=== PATIENT | female | born 1965 | race Caucasian/White ===

== ENCOUNTER → 2016-04-10 | Outpatient (CLI) | payer BC ==
--- NOTE | 2016-04-11 11:31 | MM ---
Reason for exam: screening (asymptomatic). Last mammogram was performed 1 year and 2 months ago. History: Patient has history of endometrial cancer at age 24. Benign excisional biopsy of the left breast, November 16, 1998. Taking hormonal contraceptives for 16 years. Physical Findings: A clinical breast exam by your physician is recommended on an annual basis and results should be correlated with mammographic findings. MG Screening Mammo w CAD Bilateral CC and MLO view(s) were taken. Prior study comparison: January 26, 2015, bilateral MG screening mammo w CAD. September 09, 2013, bilateral MG screening mammo w CAD. The breast tissue is heterogeneously dense. This may lower the sensitivity of mammography. No significant changes when compared with prior studies. ASSESSMENT: Benign, BI-RAD 2 RECOMMENDATION: Routine screening mammogram of both breasts in 1 year.
== END | disposition home or self-care (01) ==
LOC: RADMAMWWP 12:59
PROVIDERS: ATTEND Obstetrics & Gynecology
DX: Z12.31 Encounter for screening mammogram for malignant neoplasm of breast (principal)

== ENCOUNTER → 2018-06-12 | Outpatient (CLI) | payer BC ==
--- NOTE | 2018-06-16 09:36 | MM ---
Reason for exam: screening (asymptomatic). Last mammogram was performed 2 years and 2 months ago. History: Patient has history of endometrial cancer at age 24. Benign excisional biopsy of the left breast, November 16, 1998. Took hormonal contraceptives for 16 years. Physical Findings: A clinical breast exam by your physician is recommended on an annual basis and results should be correlated with mammographic findings. MG 3D Screening Mammo W/Cad Bilateral CC and MLO view(s) were taken. Prior study comparison: April 10, 2016, bilateral MG screening mammo w CAD. January 26, 2015, bilateral MG screening mammo w CAD. There are scattered fibroglandular densities. No significant changes when compared with prior studies. ASSESSMENT: Benign, BI-RAD 2 RECOMMENDATION: Routine screening mammogram of both breasts in 1 year.
== END | disposition home or self-care (01) ==
LOC: RADMAMWWP 12:38
PROVIDERS: ATTEND Obstetrics & Gynecology
DX: Z12.31 Encounter for screening mammogram for malignant neoplasm of breast (principal)
CPT/HCPCS: 77063; 77067

== ENCOUNTER → 2018-10-09 | Outpatient (CLI) | payer BC ==
--- NOTE | 2018-10-09 09:37 | BD ---
EXAMINATION TYPE: Axial Bone Density DATE OF EXAM: 10/09/2018 COMPARISON: NONE CLINICAL HISTORY: N 95.1 Height: 5 FT 4 IN Weight: 217 FRAX RISK QUESTIONS: History of Fracture in Adulthood: YES RISK FACTORS HISTORY OF: Family History of Osteoporosis: YES Active: YES Postmenopausal woman: APPROX AGE 49 MEDICATIONS: Thyroid Medications: YES Which medication: SYNTHROID How Lon PLUS YEARS Additional Medications: SYNTHROID,VIT D Additional History: EXAM MEASUREMENTS: Bone mineral densitometry was performed using the [employer]. Bone mineral density as measured about the Lumbar spine is: ----- L1-L4(G/cm2): 1.075 T Score Values are as follows: ----- L2: -0.8 ----- L3: -0.9 ----- L4: -0.8 ----- L1-L4: -0.9 BASELINE Bone mineral density about the R hip (g/cm2): 0.992 Bone mineral density about the L hip (g/cm2): 1.032 T Score values are as follows: -----R Neck: -0.3 -----L Neck: 0.0 -----R Total: 0.4 -----L Total: 0.6 BASELINE IMPRESSION: Normal (Values between +1 and -1 indicate normal bone mass). Values approach osteopenia in regards to the lumbar spine. Consider repeating this study in 5 years or sooner if there is some new clinical i ndication. NOTE: T-SCORE=SD OF THE YOUNG ADULT MEAN.
== END | disposition home or self-care (01) ==
LOC: RADBDWWP 08:46
PROVIDERS: ATTEND Obstetrics & Gynecology
DX: M85.88 Other specified disorders of bone density and structure, other site (principal); N95.1 Menopausal and female climacteric states
CPT/HCPCS: 77080

== ENCOUNTER → 2019-09-02 | Outpatient (CLI) | payer BC ==
--- NOTE | 2019-09-03 09:13 | MM ---
Reason for exam: screening (asymptomatic). Last mammogram was performed 1 year and 3 months ago. History: Patient is postmenopausal and has history of endometrial cancer at age 24. Benign excisional biopsy of the left breast, November 16, 1998. Took hormonal contraceptives for 16 years. Physical Findings: A clinical breast exam by your physician is recommended on an annual basis and results should be correlated with mammographic findings. MG 3D Screening Mammo W/Cad Bilateral CC and MLO view(s) were taken. Prior study comparison: June 12, 2018, bilateral MG 3d screening mammo w/cad. April 10, 2016, bilateral MG screening mammo w CAD. There are scattered fibroglandular densities. There is no discrete abnormality. No significant changes when compared with prior studies. ASSESSMENT: Negative, BI-RAD 1 RECOMMENDATION: Routine screening mammogram of both breasts in 1 year.
== END | disposition home or self-care (01) ==
LOC: RADMAMWWP 09:55
PROVIDERS: ATTEND Obstetrics & Gynecology
DX: Z12.31 Encounter for screening mammogram for malignant neoplasm of breast (principal)
CPT/HCPCS: 77063; 77067

== ENCOUNTER → 2020-09-15 | Outpatient (CLI) | payer BC ==
--- NOTE | 2020-09-21 10:53 | MM ---
Reason for exam: screening (asymptomatic). Last mammogram was performed 1 year ago. History: Patient is postmenopausal and has history of endometrial cancer at age 24. Benign excisional biopsy of the left breast, November 16, 1998. Took hormonal contraceptives for 16 years. Physical Findings: A clinical breast exam by your physician is recommended on an annual basis and results should be correlated with mammographic findings. MG 3D Screening Mammo W/Cad Bilateral CC and MLO view(s) were taken. Prior study comparison: September 02, 2019, bilateral MG 3d screening mammo w/cad. June 12, 2018, bilateral MG 3d screening mammo w/cad. The breast tissue is heterogeneously dense. This may lower the sensitivity of mammography. There is no discrete abnormality. No significant changes when compared with prior studies. ASSESSMENT: Negative, BI-RAD 1 RECOMMENDATION: Routine screening mammogram of both breasts in 1 year.
== END | disposition home or self-care (01) ==
LOC: RADMAMWWP 10:01
PROVIDERS: ATTEND Obstetrics & Gynecology
DX: Z12.31 Encounter for screening mammogram for malignant neoplasm of breast (principal); Z78.0 Asymptomatic menopausal state
CPT/HCPCS: 77063; 77067

== ENCOUNTER → 2021-10-03 | Outpatient (CLI) | payer BC ==
--- NOTE | 2021-10-04 09:15 | MM ---
Reason for Exam: Screening (asymptomatic). Last mammogram was performed 1 year(s) and 1 month(s) ago. Patient History: Menarche at age 14. First Full-Term at age 20. Postmenopausal. Endometrial cancer, age 24. Patient used Hormonal Contraceptives for 16 years. 11/16/1998, Benign Excisional Biopsy on the left side. Risk Values: Princess 5 year model risk: 1.0%. NCI Lifetime model risk: 7.2%. Prior Study Comparison: 06/12/2018 Bilateral Screening Mammogram, [facility]. 09/02/2019 Bilateral Screening Mammogram, [facility]. 09/15/2020 Bilateral Screening Mammogram, [facility]. Tissue Density: There are scattered fibroglandular densities. Findings: Analyzed By CAD. There is no suspicious group of microcalcifications or new suspicious mass in either breast. Overall Assessment: Negative, BI-RAD 1 Management: Screening Mammogram of both breasts in 1 year. A clinical breast exam by your physician is recommended on an annual basis and results should be correlated with mammographic findings. Electronically signed and approved by: Armand Donaldson DO
== END | disposition home or self-care (01) ==
LOC: RADMAMWWP 07:56
PROVIDERS: ATTEND Obstetrics & Gynecology
DX: Z12.31 Encounter for screening mammogram for malignant neoplasm of breast (principal); Z78.0 Asymptomatic menopausal state
CPT/HCPCS: 77063; 77067

== ENCOUNTER → 2022-10-07 | Outpatient (CLI) | payer BC ==
--- NOTE | 2022-10-07 10:26 | MM ---
Reason for Exam: Screening (asymptomatic). Last screening mammogram was performed 12 month(s) ago. Patient History: Menarche at age 14. First Full-Term at age 20. Postmenopausal. Endometrial cancer, age 24. Patient used Hormonal Contraceptives for 16 years. 11/16/1998, Benign Excisional Biopsy on the left side. Risk Values: Princess 5 year model risk: 1.0%. NCI Lifetime model risk: 7.0%. Prior Study Comparison: 09/02/2019 Bilateral Screening Mammogram, [facility]. 09/15/2020 Bilateral Screening Mammogram, [facility]. 10/03/2021 Bilateral MG 3D screening mammo w/cad, [facility]. Tissue Density: The breast tissue is almost entirely fat. Findings: Analyzed By CAD. There is no suspicious group of microcalcifications or new suspicious mass in either breast. Overall Assessment: Negative, BI-RAD 1 Management: Screening Mammogram of both breasts in [address] [facility] will attempt to contact patient to return for supplemental views and ultrasound if indicated. Patient should continue monthly self-breast exams. A clinical breast exam by your physician is recommended on an annual basis. This exam should not preclude additional follow-up of suspicious palpable abnormalities. Note on Princess scores and lifetime risk: 1. A Princess score greater than 3% is considered moderate risk. If this is the case, consider specialist referral to assess eligibility for a risk reducing agent. 2. If overall lifetime risk for the development of breast cancer is 20% or higher, the patient may qualify for future screening with alternating mammogram and breast MRI. Electronically signed and approved by: Armand Donaldson DO
== END | disposition home or self-care (01) ==
LOC: RADMAMWWP 08:25
PROVIDERS: ATTEND Obstetrics & Gynecology
DX: Z12.31 Encounter for screening mammogram for malignant neoplasm of breast (principal); Z78.0 Asymptomatic menopausal state
CPT/HCPCS: 77063; 77067

== ENCOUNTER → 2023-11-07 | Outpatient (CLI) | payer BC ==
--- NOTE | 2023-11-10 08:33 | MM ---
Reason for Exam: Screening (asymptomatic). Last mammogram was performed 1 year(s) and 1 month(s) ago. Patient History: Menarche at age 14. First Full-Term at age 20. Postmenopausal. Endometrial cancer, age 24. Patient used Hormonal Contraceptives for 16 years. 11/16/1998, Benign Excisional Biopsy on the left side. Risk Values: Princess 5 year model risk: 1.0%. NCI Lifetime model risk: 6.9%. Prior Study Comparison: 09/15/2020 Bilateral Screening Mammogram, [facility]. 10/03/2021 Bilateral MG 3D screening mammo w/cad, [facility]. 10/07/2022 Bilateral MG 3D screening mammo w/cad, [facility]. Tissue Density: There are scattered areas of fibroglandular density. Findings: Analyzed By CAD. Right breast: There is no suspicious group of microcalcifications or new suspicious mass. Left breast: There is no suspicious group of microcalcifications or new suspicious mass. Overall Assessment: Negative, BI-RAD 1 Management: Screening Mammogram of both breasts in [address] [facility] will attempt to contact patient to return for supplemental views and ultrasound if indicated. Patient should continue monthly self-breast exams. A clinical breast exam by your physician is recommended on an annual basis. This exam should not preclude additional follow-up of suspicious palpable abnormalities. Note on Princess scores and lifetime risk: 1. A Princess score greater than 3% is considered moderate risk. If this is the case, consider specialist referral to assess eligibility for a risk reducing agent. 2. If overall lifetime risk for the development of breast cancer is 20% or higher, the patient may qualify for future screening with alternating mammogram and breast MRI. [facility], , 11/10/2023 8:29 AM. Electronically signed and approved by: Armand Donaldson DO
--- NOTE | 2023-11-13 10:40 | BD ---
EXAMINATION TYPE: Axial Bone Density DATE OF EXAM: 11/07/2023 CLINICAL HISTORY: 58 years old Female. ICD-10 CODE: N951 MENOPAUSAL AND FEMALE CLIMACTERIC STATE Height: 63.7 in Weight: 229 lbs FRAX RISK QUESTIONS: History of Fracture in Adulthood: lt foot age 24, MEDICATIONS: Thyroid Medications: yes Which medication: Levothyroxine How Lon+ YEARS EXAM MEASUREMENTS: Bone mineral densitometry was performed using the [employer] [facility]. Bone mineral density as measured about the Lumbar spine is: ----- L1-L4(G/cm2): 1.032 T Score Values are as follows: ----- L1: -0.9 ----- L2: -1.3 ----- L3: -1.6 ----- L4: -1.3 ----- L1-L4: -1.2 Z Score Values are as follows: ----- L1: -1.1 ----- L2: -1.6 ----- L3: -1.8 ----- L4: -1.6 ----- L1-L4: -1.5 Bone mineral density has: Decreased -4.0% since study of: 10/09/2018 Bone mineral density about the R hip (g/cm2): 1.076 Bone mineral density about the L hip (g/cm2): 1.100 T Score values are as follows: -----R Neck: -1.1 -----L Neck: -0.9 -----R Total: 0.5 -----L Total: 0.7 Z Score values are as follows: -----R Neck: -0.8 -----L Neck: -0.6 -----R Total: 0.4 -----L Total: 0.6 Bone mineral density has: Increased 1.9% since study of: 10/09/2018 FRAX%s: The graph provided illustrates a 9.8% chance for a major osteoporotic fx and a 0.5% chance fo r the hips probability for fx in 10 years time. IMPRESSION: Osteopenia (T Score between -2.5 and -1). There is slightly increased risk of fracture and the patient may be considered for treatment. Re-Screen 2-5 years. NOTE: T-SCORE=SD OF THE YOUNG ADULT MEAN. [facility], , 11/13/2023 10:38 AM
== END | disposition home or self-care (01) ==
LOC: RADMAMWWP 12:06
PROVIDERS: ATTEND Family Medicine
DX: Z12.31 Encounter for screening mammogram for malignant neoplasm of breast (principal); R92.323 Mammographic fibroglandular density, bilateral breasts; Z78.0 Asymptomatic menopausal state; Z92.0 Personal history of contraception
CPT/HCPCS: 77063; 77067; 77080